=== PATIENT | female | born 1960 | race Caucasian/White ===

== ENCOUNTER 2016-07-01 17:01 | Outpatient (CLI) | payer OTHER ==
[2016-07-01 17:13] LABS: #Basophils 0.1 thou/uL (0.0-0.2); #Eosinphils 0.4 thou/uL (0.0-0.7); #Lymphocytes 3.2 thou/uL (1.20-3.40); #Monocytes 0.4 thou/uL (0.11-0.59); #Neutrophils 4.7 thou/uL (1.40-6.50); %Basophils 1.6 % (0.0-1.0); %Eosinophils 4.5 % (0.0-10.0); %Lymphocytes 36.2 % (21.0-51.0); %Monocytes 4.7 % (0.0-10.0); Hematocrit 45.3 % (36.0-47.0); Mean Platelet Volume 5.7 fL (7.4-10.4); Red Blood Cell (RBC) Count 4.82 mill/uL (4.20-5.40); White Blood Cell (WBC) Count 8.9 thou/uL (4.8-10.8)
[2016-07-01 17:34] LABS: Hemoglobin A1c 5.3 % (4.0-6.0)
[2016-07-01 18:07] LABS: Anion Gap 18 mmol/L (10-20); BUN (Urea Nitrogen) 17 mg/dL (9.8-20.1); Calc. Creatinine Clearance 0 mL/min (70-130); Calcium 9.9 mg/dL (7.8-10.44); Carbon Dioxide 21 mmol/L (22-29); Chloride 110 mmol/L (98-107); Estimated GFR-MDRD 73; LDL Cholesterol, Calculated 112 mg/dL
[2016-07-01 18:52] LABS: ALT (SGPT) 24 U/L (0-55); AST (SGOT) 18 U/L (5-34); Alkaline Phosphatase 85 U/L (40-150); Bilirubin, Total 0.3 mg/dL (0.2-1.2); Globulin 2.8 g/dL (2.4-3.5); Protein, Total 7.2 g/dL (6.0-8.3)
== END 2016-07-01 17:02 | disposition home or self-care (01) ==
LOC: NAV SJFMSP 17:01
PROVIDERS: ATTEND Family Medicine
DX: Z00.00 Encounter for general adult medical examination without abnormal findings (principal)
CPT/HCPCS: 80053; 80061; 82306; 83036; 84439; 84443; 85025

== ENCOUNTER 2016-07-29 15:16 | Outpatient (CLI) | payer OTHER ==
[2016-07-29 15:35] LABS: Bilirubin Negative (Negative); Blood, Urine Negative (Negative); Glucose, Urine (Dipstick) Negative (Negative); Ketone, Urine Negative (Negative); Nitrite Negative (Negative); Protein, Urine (Dipstick) Negative (Neg-Trace); Urobilinogen 0.2 mg/dL (0.2-1.0)
== END 2016-07-29 15:17 | disposition home or self-care (01) ==
LOC: NAV LAB 15:16
DX: Z00.00 Encounter for general adult medical examination without abnormal findings (principal)
CPT/HCPCS: 81003

== ENCOUNTER 2016-07-29 16:41 | Outpatient (CLI) | payer OTHER | END 2016-07-29 16:42 | disposition home or self-care (01) | LOC: NAV LAB 16:41 | PROVIDERS: ATTEND Family Medicine | DX: R30.0 Dysuria (principal) | CPT/HCPCS: 87086 ==

== ENCOUNTER 2016-08-13 08:57 | Outpatient (CLI) | payer OTHER ==
--- NOTE | 2016-08-16 10:52 | RAD ---
3 VIEWS OF THE RIGHT FOOT: Date: 08/13/16 INDICATION: Right foot injury. COMPARISON: 09/01/12. FINDINGS: No acute fracture or subluxation is present. Lisfranc alignment is preserved. Enthesopathic change s een off the plantar calcaneus which is stable. There is mild great toe MTP osteoarthrosis. IMPRESSION: 1. No acute fracture or subluxation is evident. Stable enthesopathic change of the calcaneus. 2. Mild great toe MTP osteoarthrosis. POS: [facility]
== END 2016-08-13 08:58 | disposition home or self-care (01) ==
LOC: NAV RAD 08:57
PROVIDERS: ATTEND Family Medicine
DX: M79.671 Pain in right foot (principal); M19.071 Primary osteoarthritis, right ankle and foot; M77.51 Other enthesopathy of right foot and ankle

== ENCOUNTER 2016-09-27 14:55 | Outpatient (CLI) | payer OTHER ==
[2016-09-27 21:31] LABS: Bilirubin Negative (Negative); Blood, Urine Large (Negative); Clarity Clear (Clear); Glucose, Urine (Dipstick) Negative (Negative); Leukocyte Trace (Negative); Nitrite Positive (Negative); Protein, Urine (Dipstick) Trace mg/dL (Neg-Trace); Urobilinogen 0.2 mg/dL (0.2-1.0)
[2016-09-27 21:32] LABS: Specific Gravity, Urine 1.008 (1.002-1.036)
[2016-09-27 21:33] LABS: Bacteria/HPF 2+ HPF (None Seen); Squamous Epithelial 0-3 HPF (0-3)
== END 2016-09-27 14:56 | disposition home or self-care (01) ==
LOC: NAV LAB 14:55
PROVIDERS: ATTEND Family Medicine
DX: R31.9 Hematuria, unspecified (principal)
CPT/HCPCS: 81001; 87086

== ENCOUNTER 2016-12-13 08:53 | Outpatient (CLI) | payer OTHER ==
[2016-12-13 09:51] LABS: ALT (SGPT) 22 U/L (8-55); AST (SGOT) 18 U/L (5-34); Albumin 4.2 g/dL (3.5-5.0); Alkaline Phosphatase 69 U/L (40-150); Anion Gap 14 mmol/L (10-20); BUN (Urea Nitrogen) 12 mg/dL (9.8-20.1); Bilirubin, Total 0.4 mg/dL (0.2-1.2); Calc. Creatinine Clearance 0 mL/min (70-130); Calcium 9.8 mg/dL (7.8-10.44); Carbon Dioxide 24 mmol/L (22-29); Cardiac Risk 3.6 (Less than 4.5); Chloride 108 mmol/L (98-107); Cholesterol 178 mg/dl (< 200 Desired); Estimated GFR-MDRD 56; Globulin 2.8 g/dL (2.4-3.5); Glucose 99 mg/dL (70-105); HDL Cholesterol 50 mg/dL (>60 Neg Risk); LDL Cholesterol, Calculated 107 mg/dL; Potassium 3.9 mmol/L (3.5-5.1); Sodium 142 mmol/L (136-145); Triglycerides 106 mg/dL (Less than 150)
[2016-12-13 10:17] LABS: Free T4 (Free Thyroxine) 0.96 ng/dL (0.70-1.48); Vitamin D, 25 Hydroxy 19.8 ng/ml (> 30.0)
== END 2016-12-13 08:54 | disposition home or self-care (01) ==
LOC: NAV LAB 08:53
PROVIDERS: ATTEND Family Medicine
DX: E78.5 Hyperlipidemia, unspecified (principal); E03.9 Hypothyroidism, unspecified; E55.9 Vitamin D deficiency, unspecified
CPT/HCPCS: 36415; 80053; 80061; 82306; 84439; 84443

== ENCOUNTER 2018-09-06 09:53 | Outpatient (CLI) | payer OTHER ==
--- NOTE | 2018-09-06 10:25 | RAD ---
XR Knee Lt 4 View STANDARD HISTORY: Left knee pain COMPARISON: None. FINDINGS: No fracture, dislocation or bony destruction is seen. No significant osteophytosis is seen. IMPRESSION: No acute process.
== END 2018-09-06 09:54 | disposition home or self-care (01) ==
LOC: NAV RAD 09:53
PROVIDERS: ATTEND Nurse Practitioner Family
DX: M25.562 Pain in left knee (principal)

== ENCOUNTER 2019-10-01 20:22 | Emergency (ER) | payer OTHER ==
[2019-10-01] MEDS ORDERED: Dexamethasone 20 MG/5 ML VIAL ONE (20:31)
== END 2019-10-01 21:10 | disposition home or self-care (01) ==
LOC: NAV ERS 20:22
DX: T78.1XXA Other adverse food reactions, not elsewhere classified, initial encounter (principal); I10 Essential (primary) hypertension; F41.9 Anxiety disorder, unspecified; F32.9 Major depressive disorder, single episode, unspecified; E03.9 Hypothyroidism, unspecified
CPT/HCPCS: 96372; 99282; J1100